=== PATIENT | male | born 1950 | race Two or more races ===

== ENCOUNTER 2019-09-24 04:14 | Emergency (ER) | payer BC ==
[~2019-09-24] VITALS: Ht 182.9 cm; Wt 75.7 kg
--- NOTE | 2019-09-24 04:32 | NUR ---
BIBSELF WITH FROM HOME TO ER BED 9. AAOX4. NO RESP DISTRESS NOTED. AMBULATORY. C/O BLADDER PAIN. PT REPORTS THAT HE WENT TO THE URGENT CARE FOR THE SAME REASON ON TUESDAY, GOT DIAGNOSED WITH ENLARGED PROSTATE AND RECEIVED A INDWELLING CATH. TODAY HE IS HERE AT THE ER COMPLAINING THAT HIS BLADDER HURST AND HAVENT HAD URINE IN HIS BAG. NOTED HARD DISTENDED BLADDER. MD WAS AT BEDSIDE FOR EVAL. ORDERS RECEIVED, BNOTED AND CARRIED OUT.
[2019-09-24] MEDS ORDERED: LIDOCAINE 2% JEL UROJET 10 ML MM ONE (04:38)
[2019-09-24] MEDS: LIDOCAINE 2% JEL UROJET 10 ML MM ONE (05:18)
--- NOTE | 2019-09-24 05:49 | NUR ---
Patient discharged to home in stable condition. Written and verbal after care instructions given. Patient verbalizes understanding of instruction. Pt ambulatory with a steady gait
[2019-09-24 06:17] VITALS: BP 132/88
== END 2019-09-24 05:45 | disposition home or self-care (01) ==
LOC: ER 04:14
DX: R33.9 Retention of urine, unspecified (principal); N40.0 Benign prostatic hyperplasia without lower urinary tract symptoms
CPT/HCPCS: 51702; 99284; J3490

== ENCOUNTER 2021-08-11 10:14 | Emergency (ER) | payer BC, MEDICARE ==
[~2021-08-11] VITALS: Ht 182.9 cm; Wt 72.6 kg
[2021-08-11 10:23] VITALS: BP 90/37
--- NOTE | 2021-08-11 10:58 | NUR ---
urine collected and sent to lab.
[2021-08-11] MEDS ORDERED: CEPHALEXIN MONOHYDRATE 500 MG CAPSULE PO ONE ×2 (11:00→11:06)
[2021-08-11] MEDS ORDERED: PHENAZOPYRIDINE HCL 200 MG TABLET PO ONE (11:00)
[2021-08-11] MEDS ORDERED: PHENAZOPYRIDINE HCL 200 MG TABLET ONE (11:06)
[2021-08-11 11:07] LABS: BILIRUBIN,URINE Negative (NEGATIVE); COLOR,URINE DARK YELLOW (YELLOW); LEUKOCYTE ESTERASE ,URINE Trace (NEGATIVE); NITRITE, URINE Negative (NEGATIVE); PH,URINE 8.5 (5.0-8.0); PROTEIN,URINE 30 mg/dl (NEGATIVE); UGLUCOSE Negative (NEGATIVE); UROBILINOGEN,URINE 0.2 EU/dL (0.2)
[2021-08-11 11:14] LABS: BACTERIA,URINE None seen /HPF (None Seen); RBC,URINE TOO NUMEROUS TO COUN /HPF (0-2); WBC,URINE 0-2 /HPF (0-3)
[2021-08-11] MEDS ORDERED: PHEN-704 PO (11:31)
[2021-08-11] MEDS ORDERED: TAMS-12 PO (11:31)
--- NOTE | 2021-08-11 11:48 | NUR ---
Patient discharged to home in stable condition. Written and verbal after care instructions given. Patient verbalizes understanding of instruction.
== END 2021-08-11 11:48 | disposition home or self-care (01) ==
LOC: ER 10:21
DX: R31.9 Hematuria, unspecified (principal); R33.9 Retention of urine, unspecified; Z79.899 Other long term (current) drug therapy
CPT/HCPCS: 81001; 87086-TC; A4217